=== PATIENT | female | born 1960 | race Caucasian/White ===

== ENCOUNTER 2019-04-07 13:39 | Emergency (ER) | payer BC, OTHER ==
--- NOTE | 2019-04-07 13:32 | ER Report ---
History and Physical Time Seen By MD: 13:28 HPI/ROS CHIEF COMPLAINT: Chest pain HISTORY OF PRESENT ILLNESS: Patient is a 58-year-old female here with complaints of midsternal chest pressure without radiation. Onset was approximately 30 minutes ago lasting only a couple minutes and resolved by the time patient was brought to the emergency department. Patient denies history of coronary artery disease, hypertension or hyperlipidemia. Patient does report that yesterday she felt like she was coming down with the flu having some nausea, vague abdominal pain. Patient did not receive aspirin prior to arrival. Patient reports that she takes omeprazole and Singulair as her only medications. Patient is afebrile, hemodynamically stable at time of evaluation. REVIEW OF SYSTEMS: Constitutional: No fever, no chills. Eyes: No discharge. ENT: No sore throat. Cardiovascular: + Resolved midsternal chest pressure no palpitations. Respiratory: No cough, no shortness of breath. Gastrointestinal: No abdominal pain, no vomiting. Genitourinary: No hematuria. Musculoskeletal: No back pain. Skin: No rashes. Neurological: No headache. Allergies: Coded Allergies: nitrofurantoin (Verified Allergy, Unknown, NAUSEA/VOMITING, 04/07/19) Home Meds Reported Medications Omeprazole (OMEPRAZOLE) 20 Mg Tablet.dr, 20 MG PO QDAY PRN for HEARTBURN, TAB 04/07/19 Montelukast Sodium (SINGULAIR) 10 Mg Tablet, 1 TAB PO QDAY, TAB 04/07/19 Constitutional Vital Sign - Last 24 Hours 04/07/19 04/07/19 04/07/19 04/07/19 13:41 13:51 13:52 14:00 Temp 97.7 Pulse 72 Resp 12 B/P (MAP) 186/119 (141) 186/119 157/98 (117) 154/103 (120) Pulse Ox 95 O2 Delivery Room Air 04/07/19 04/07/19 04/07/19 04/07/19 14:09 14:30 14:39 14:44 Pulse 75 76 74 Resp 18 7 12 B/P (MAP) 149/114 (126) Pulse Ox 94 96 87 04/07/19 04/07/19 04/07/19 04/07/19 15:00 15:14 15:30 15:44 Pulse 69 65 Resp 8 16 B/P (MAP) 132/93 (106) 137/88 (104) Pulse Ox 90 93 04/07/19 04/07/19 04/07/19 04/07/19 15:49 16:00 16:19 16:30 Pulse 74 76 Resp 10 10 B/P (MAP) 145/93 (110) 147/98 (114) Pulse Ox 96 92 04/07/19 04/07/19 04/07/19 04/07/19 16:49 17:00 17:05 17:30 Pulse 73 71 Resp 11 12 B/P (MAP) 148/97 (114) 129/88 (102) Pulse Ox 91 91 04/07/19 18:05 Pulse 71 B/P (MAP) 123/87 (99) Physical Exam General Appearance: The patient is alert, has no immediate need for airway protection and no signs of toxicity. No acute distress Eyes: Pupils equal and round no pallor or injection. ENT, Mouth: Mucous membranes are moist. Respiratory: There are no retractions, lungs are clear to auscultation. Cardiovascular: Regular rate and rhythm. Gastrointestinal: Abdomen is soft and non tender, no masses, bowel sounds normal. Neurological: No focal neurological deficits, cranial nerves intact Skin: Warm and dry, no rashes. Musculoskeletal: Neck is supple non tender. Extremities are nontender, nonswollen and have full range of motion. DIFFERENTIAL DIAGNOSIS: After history and physical exam differential diagnosis was considered for chest pain including but not limited to myocardial ischemia, pericarditis pulmonary embolus, chest wall pain, pleural inflammation and pulmonary infectious causes. Medical Decision Making Data Points Result Diagram: 04/07/19 1430 04/07/19 1413 Laboratory Hematology Test 04/07/19 14:30 White Blood Count 7.0 k/uL (4.5-11.0) Red Blood Count 4.79 M/uL (4.17-5.56) Hemoglobin 13.8 g/dL (12.0-16.0) Hematocrit 41.0 % (34.0-47.0) Mean Corpuscular Volume 85.6 fL (80.0-96.0) Mean Corpuscular Hemoglobin 28.7 pg (26.0-33.0) Mean Corpuscular Hemoglobin Concent 33.6 g/dL (32.0-36.0) Red Cell Distribution Width 14.9 % (11.5-14.5) H Platelet Count 174 K/uL (150-450) Mean Platelet Volume 9.4 fL (7.2-11.1) Neutrophils (%) (Auto) 50.5 % (39.4-72.5) Lymphocytes (%) (Auto) 35.6 % (17.6-49.6) Monocytes (%) (Auto) 9.5 % (4.1-12.4) Eosinophils (%) (Auto) 3.8 % (0.4-6.7) Basophils (%) (Auto) 0.6 % (0.3-1.4) Nucleated RBC Relative Count (auto) 0.1 /100WBC Neutrophils # (Auto) 3.5 K/uL (2.0-7.4) Lymphocytes # (Auto) 2.5 K/uL (1.3-3.6) Monocytes # (Auto) 0.7 K/uL (0.3-1.0) Eosinophils # (Auto) 0.3 K/uL (0.0-0.5) Basophils # (Auto) 0.0 K/uL (0.0-0.1) Nucleated RBC Absolute Count (auto) 0.01 K/uL Peripheral Blood Smear No Y/N Chemistry Test 04/07/19 14:13 04/07/19 14:30 04/07/19 17:23 Sodium Level 141 mmol/L (137-145) Potassium Level 4.0 mmol/L (3.5-5.0) Chloride Level 108 mmol/L (98-107) Carbon Dioxide Level 24 mmol/L (22-31) Blood Urea Nitrogen 15 mg/dl (7-18) Creatinine 0.70 mg/dl (0.52-1.04) Glomerular Filtration Rate Calc > 60.0 Random Glucose 82 mg/dl (75-110) Calcium Level 9.7 mg/dl (8.4-10.2) Total Bilirubin 0.8 mg/dl (0.2-1.3) Aspartate Amino Transf (AST/SGOT) 44 U/L (0-35) Alanine Aminotransferase (ALT/SGPT) 55 U/L (0-56) Alkaline Phosphatase 166 U/L (0-126) Total Protein 7.9 g/dl (6.3-8.2) Albumin 4.4 g/dl (3.5-5.0) B-Type Natriuretic Peptide 17 pg/ml (0-100) Troponin I < 0.012 ng/ml Coagulation Test 04/07/19 14:30 Prothrombin Time 12.6 seconds (12.0-14.4) Prothromb Time International Ratio 0.94 Activated Partial Thromboplast Time 23 seconds (23-35) EKG/Imaging EKG Interpretation PATIENT NAME: FALLON VARGAS : [id number] MR: [id number] V: [id number] EXAM DATE: ORDERING PHYSICIAN: JANKI PATEL TECHNOLOGIST: CHAD Up Reason : CP Blood Pressure : / mmHG Vent. Rate : 068 BPM Atrial Rate : 068 BPM P-R Int : 156 ms QRS Dur : 076 ms QT Int : 410 ms P-R-T Axes : 036 024 034 degrees QTc Int : 435 ms Normal sinus rhythm Normal ECG No previous ECGs available Referred By: JORGE Confirmed By: Imaging PATIENT NAME: Fallon Vargas : 1960 MR: [id number] V: [id number] EXAM DATE: ORDERING PHYSICIAN: JANKI PATEL TECHNOLOGIST: Location: [facility] Patient: Fallon Vargas : 1960 Visit/Account:[id number] Date of Sevice: 04/07/2019 Examination: CHEST SINGLE AP Comparison: None. History: Chest pain. Findings: Cardiac and hilar contour size is normal. No consolidation, nodule, or peribronchial inflammation. No pneumothorax, edema, or effusion. Chronic appearing deformities of multiple left ribs. IMPRESSION: No findings of acute cardiopulmonary disease. Report Dictated By: Quang Benoit MD at 04/07/2019 3:13 PM ED Course/Re-evaluation ED Course Patient is a 58-year-old female here with complaints of acute onset of midsternal chest pressure which started approximately 30 minutes prior to arrival and resolved several minutes later. Patient has no prior history of coronary artery disease or significant cardiac risk factors. Patient was administered aspirin 324 mg shortly after arrival. EKG showed no acute ischemic findings. Troponin was negative on initial troponin, repeat at 1700 4 hours post onset. Chest x-ray showed no acute findings. Patient was given nitroglycerin, normal saline bolus, aspirin, Zofran. Repeat troponin was found to be negative. Recommending close PCP follow-up. Return precautions provided. Decision to Disposition Date: Apr 07, 2019 Decision to Disposition Time: 18:32 Depart Departure Latest Vital Signs Vital Signs Date Time Temp Pulse Resp B/P (MAP) Pulse Ox O2 Delivery O2 Flow Rate FiO2 04/07/19 18:05 71 123/87 (99) 04/07/19 17:05 12 91 04/07/19 13:51 97.7 Room Air Impression: Primary Impression: Chest pain Condition: Improved Disposition: HOME OR SELF-CARE Patient Instructions: Chest Pain (ED) Additional Instructions: Please follow up closely with her primary care provider. Please return promptly if you develop worsening pain, recurrent episodes of chest pain, nausea, vomiting, fevers or chills, shortness of breath JANKI PATEL DO Apr 07, 2019 13:32
[~2019-04-07 13:39] MED LIST changes: +ASPIRIN 81 MG CHEW PO ONE; -MONT10TA PO; +NITROGLYCERIN 0.4 MG SUBL SL SCH; +NS(*) 0.9% 500 ML BAG 500 ML IV ONE; -OMEP-137 PO
[2019-04-07] MEDS ORDERED: OMEP-137 PO (13:54)
[2019-04-07] MEDS ORDERED: MONT10TA PO (13:54)
--- NOTE | 2019-04-07 14:02 | EKG ---
FACILITY: [facility] PATIENT NAME: MYA WESTFALL : [id number] MR: [id number] V: [id number] EXAM DATE: ORDERING PHYSICIAN: JANKI PATEL TECHNOLOGIST: CHAD Up Reason : CP Blood Pressure : / mmHG Vent. Rate : 068 BPM Atrial Rate : 068 BPM P-R Int : 156 ms QRS Dur : 076 ms QT Int : 410 ms P-R-T Axes : 036 024 034 degrees QTc Int : 435 ms Normal sinus rhythm Normal ECG No previous ECGs available Confirmed by VICENTE SRINIVASAN ([id number]) on 04/07/2019 3:46:59 PM Referred By: JORGE Confirmed By:VICENTE SRINIVASAN
[2019-04-07 14:41] LABS: PLATELET COUNT, AUTOMATED 174 K/uL (150-450)
[2019-04-07] MEDS ORDERED: ONDANSETRON 4 MG/2 ML VIAL IVP ONE (15:10)
[2019-04-07 15:11] LABS: INR 0.94
--- NOTE | 2019-04-07 15:30 | RADIOLOGY IMAGING REPORT ---
[place] [facility] [place]IENT NAME: Fallon Vargas : 1960 MR: [id number] V: [id number] EXAM DATE: ORDERING PHYSICIAN: JANKI PATEL TECHNOLOGIST: Location: [facility] [place] Patient: Fallon Vargas : 1960 Visit/Account:[id number] Date of Sevice: 04/07/2019 Examination: CHEST SINGLE AP Comparison: None. History: Chest pain. Findings: Cardiac and hilar contour size is normal. No consolidation, nodule, or peribronchial inflam mation. No pneumothorax, edema, or effusion. Chronic appearing deformities of multiple left ribs. IMPRESSION: No findings of acute cardiopulmonary disease. Report Dictated By: Quang Benoit MD at 04/07/2019 3:13 PM Report E-Signed By: Quang Benoit MD at 04/07/2019 3:21 PM [id number]
[2019-04-07 18:05] VITALS: BP 123/87
== END 2019-04-07 18:55 | disposition home or self-care (01) ==
LOC: ER 13:40
DX: R07.9 Chest pain, unspecified (principal)
CPT/HCPCS: 36415; 71045; 83880; 84484; 85025; 85610; 85730; 93005; 96361; 96374; 99283; J2405; J7040; 82040; 82247; 82310; 82374; 82435; 82565; 82947; 84075; 84132; 84155; 84295; 84450; 84460; 84520

== ENCOUNTER → 2019-04-07 | Outpatient (CLI) | payer BC, OTHER ==
[~2019-04-07] MED LIST: MONT10TA PO; OMEP-137 PO
== END ==
LOC: AMB 13:03
PROVIDERS: ATTEND Nurse Practitioner
DX: R07.9 Chest pain, unspecified (principal); R06.00 Dyspnea, unspecified
CPT/HCPCS: A0425; A0427